=== PATIENT | male | born 1960 | race Caucasian/White ===

== ENCOUNTER → 2018-11-25 | Outpatient (CLI) | payer BC ==
--- NOTE | 2018-11-25 15:32 | PCVCIMAG ---
APPROVED REPORT Study performed: 11/25/2018 14:09:39 EXAM: Comprehensive 2D, Doppler, and color-flow Echocardiogram Patient Location: Echo lab Room #: 2Status: routine BSA: 2.00 HR: 61 bpmBP: 116/70 mmHg Rhythm: NSR Other Information Study Quality: Good Risk Factors: Cardiac Risk Factors: HTN, Hyperlipidemia Indications Chest Pain Hypertension/HDD ELEVATED CORONARY CA+ 2D Dimensions IVSd: 7.71 (7-11mm)LVOT Diam: 22.20 (18-24mm) LVDd: 46.88 mm PWd: 8.85 (7-11mm)Ascending Ao: 28.44 (22-36mm) LVDs: 29.10 (25-40mm) Left Atrium: 33.56 (27-40mm) Aortic Root: 31.08 mm LV Single Plane 4CH: 61.66 % LV Single Plane 2CH: 66.47 % Biplane EF: 63.8 % Volumes Left Atrial Volume (Systole) Single Plane 4CH: 52.17 mLSingle Plane 2CH: 37.20 mL Biplane LA Volume: 44.00 mLLA ESV Index: 22.00 mL/m2 Aortic Valve AoV Peak Cristopher.: 1.44 m/s AO Peak Gr.: 8.33 mmHgLVOT Max P.51 mmHg LVOT Max V: 0.94 m/s FAUSTO Vmax: 2.51 cm2 Mitral Valve E/A Ratio: 1.2 MV Decel. Time: 444.60 ms MV E Max Cristopher.: 0.58 m/s MV A Cristopher.: 0.48 m/s IVRT: 69.20 ms TDI E/Lateral E': 3.63E/Medial E': 4.83 Medial E' Cristopher.: 0.12 m/s Lateral E' Cristopher.: 0.16 m/s Pulmonary Valve PV Peak Cristopher.: 0.98 m/sPV Peak Gr.: 3.88 mmHg Pulmonary Vein P Vein S: 0.67 m/sP Vein A: 0.40 m/s P Vein D: 0.61 m/sP Vein A Dur.: 86.5 msec P Vein S/D Ratio: 1.10 Tricuspid Valve TR Peak Cristopher.: 2.53 m/s TR Peak Gr.: 25.62 mmHg TV Vmax: 0.58 m/sPA Pressure: 33.00 mmHg Left Ventricle The left ventricle is normal size. There is normal LV segmental wall motion. There is normal left ventricular wall thickness. Left ventricular systolic function is normal. The left ventricular ejection fraction is within the normal range. LVEF is 60-65%. The left ventricular diastolic function is normal. Right Ventricle The right ventricle is normal size. The right ventricular systolic function is normal. Atria The left atrium size is normal. Right atrium is mildly dilated. Aortic Valve Aortic valve is trileaflet. No aortic regurgitation is present. There is no aortic valvular stenosis. Mitral Valve Mild myxomatous MV leaflets Mild to moderate mitral regurgitation. No evidence of mitral valve stenosis. Mild prolapse of the posterior mitral valve leaflet. Tricuspid Valve The tricuspid valve is normal in structure. Mild tricuspid regurgitation with a PA pressure of 33 mmHg. Pulmonic Valve The pulmonary valve is normal in structure. There is no pulmonic valvular regurgitation. Great Vessels The aortic root is normal in size. The ascending aorta is normal in size. Aortic arch is normal in caliber. IVC is normal in size and collapses >50% with inspiration. Pericardium There is no pericardial effusion. There is no pleural effusion. <Conclusion> The left ventricle is normal size. There is normal left ventricular wall thickness. Left ventricular systolic function is normal. The left ventricular diastolic function is normal. The right ventricle is normal size. The left atrium size is normal. Aortic valve is trileaflet. Mild myxomatous MV leaflets Mild prolapse of the posterior mitral valve leaflet. Mild to moderate mitral regurgitation. Mild tricuspid regurgitation with a PA pressure of 33 mmHg.
--- NOTE | 2018-11-25 15:34 | PCVCIMAG ---
APPROVED REPORT Study performed: 11/25/2018 14:43:49 Exam: Stress Echocardiogram Indication: Chest pain Patient Location: Echo lab Stress Nurse: Sarah Whitney RN Room #: 2 Status: routine Ht: 5 ft 10 in HR: 61 bpm BP: 116/70 mmHg Rhythm: NSR Medical History Medical History: HTN, Hyperlipidemia, Elevated coronary Ca+ score Cardiac Risk Factors: HTN, Hyperlipidemia Previous Cardiac Procedures: none Pretest Chest Pain Characteristics: No chest pain Exercise History: Physically active Procedure The patient underwent an Exercise Stress Test using the Michele Protocol. Blood pressure, heart rate, and EKG were monitored. An Echocardiogram was performed by master technician in four stages in quad fashion. At peak stress, four selected images were obtained and placed side by side with resting images for comparison. Stress Test Details Stress Test: Exercise stress testing was performed using a Michele protocol. HR Resting HR: 71 bpmMax Heart Rate (APMHR): 161 bpm Max HR Achieved: 141 bpmTarget HR (85% APMHR): 136 bpm % of APMHR: 87 Recovery HR: 72 bpm HR response to stress: Normal HR response to stress BP Resting BP: 116/70 mmHg Max BP: 168/86 mmHg Recovery BP: 138/76 mmHg BP response to stress: Normal blood pressure response to stress. ECG Resting ECG: Sinus Rhythm Stress ECG: Sinus Rhythm ST Change: Non-ischemic Arrhythmia: Rare PACs,PVCs Recovery ECG: Sinus Rhythm Recovery ST Change: Non-ischemic Recovery ST Deviation: -0.85 mm Recovery Arrhythmia: Rare PACs Clinical Reason for Termination: Maximal effort Stress Symptoms: none Exercise duration: 10 min 00 sec Highest Stage Achieved: Stage 4: 4.2 mph at 16% grade. Exercise capacity: 13.3 METs Overall Exercise Capacity for Age: Normal Scale: Active Angina Score: None No complications. Stress ECG Conclusion The patient exercised according to the MIHCELE protocol for 10:00 mins; achieving a work level of 13.3 METS. The resting heart rate of 71 bpm juma to a maximum heart rate of 141 bpm. This value represent 87% of the maximal, age-predicted heart rate. The resting blood pressure of 116/70 mmHg, juma to a maximum blood pressure of 168/86mmHg. The exercise test was stopped due to fatigue . Pre-Stress Echo The resting Echocardiogram showed normal left ventricular contractility with an estimated Ejection Fraction of about 55-60%. Normal wall motion in all segments on baseline images. Post-Stress Echo The stress Echocardiogram showed normal left ventricular contractility with an estimated Ejection Fraction of about 65-70%. Normal augmentation of wall motion in all segments on post stress images. Clinical No clinical or ECG evidence for ischemia. Conclusion Clinical Response: Non-ischemic Exercise Capacity: Average Stress ECG Response: Non-ischemic Stress Echo Images: Non-ischemic No clinical, EKG or echocardiographic evidence for ischemia. No prior study available for comparison. <Conclusion> No clinical, EKG or echocardiographic evidence for ischemia.
== END | disposition home or self-care (01) ==
LOC: PCVCIMAG 14:01
PROVIDERS: ATTEND Internal Medicine Cardiovascular Disease
DX: I08.1 Rheumatic disorders of both mitral and tricuspid valves (principal); I10 Essential (primary) hypertension; R93.1 Abnormal findings on diagnostic imaging of heart and coronary circulation; R07.89 Other chest pain
CPT/HCPCS: 93306; 93351